=== PATIENT | female | born 1950 | race Caucasian/White ===

== ENCOUNTER → 2020-08-07 | Outpatient (CLI) | payer MEDICARE, OTHER ==
[~2020-08-07] MED LIST: ACID CONTROLLER20 MG PO; AIRDUO DIGIHAL1 EACH; AMLODIPINE BESY10 MG PO; CLORAZEPATE DI7.5 MG PO; HYDROCHLOROTH12.5 MG PO; LEVOTHYROXINE137 MC1 PO; LIPITOR TAB 1010 MG PO; LOPRESSOR 25 MG25 MG PO; METFORMIN HCL1000 M1 PO; SOLIQUA 100 UNIT3 ML SQ; TRAMADOL HCL50 MG PO; VITAMIN D3125 MC1 PO; VOLTAREN EC 7575 MG PO
== END ==
LOC: HEART 5 15:21
DX: I10 Essential (primary) hypertension (principal); R00.2 Palpitations

== ENCOUNTER → 2020-09-07 | Outpatient (CLI) | payer MEDICARE, OTHER | LOC: HEART 5 08:10 | DX: I47.2 Ventricular tachycardia (principal) | CPT/HCPCS: 78452; A9502; J2785 ==

== ENCOUNTER → 2020-10-13 | Outpatient (CLI) | payer MEDICARE, OTHER ==
[2020-10-13 15:37] LABS: HEMOGLOBIN 13.6 gm/dl (12.3-15.3); RED BLOOD COUNT 4.71 M/UL (4.00-5.10); WHITE BLOOD COUNT 6.7 K/UL (4.5-11.0)
== END ==
LOC: LAB 12:53
PROVIDERS: Internal Medicine Interventional Cardiology
DX: I10 Essential (primary) hypertension (principal); R07.9 Chest pain, unspecified; I20.9 Angina pectoris, unspecified; E11.9 Type 2 diabetes mellitus without complications; E78.5 Hyperlipidemia, unspecified
CPT/HCPCS: 36415; 80048; 85025; 85610; 85730

== ENCOUNTER → 2020-10-25 | Outpatient (CLI) | payer MEDICARE, OTHER | LOC: CATH 07:32 | DX: I25.118 Atherosclerotic heart disease of native coronary artery with other forms of angina pectoris (principal); M25.511 Pain in right shoulder; I10 Essential (primary) hypertension; E11.9 Type 2 diabetes mellitus without complications; E78.5 Hyperlipidemia, unspecified; Z20.822 Contact with and (suspected) exposure to COVID-19 | CPT/HCPCS: 93005; 93571; 99152; 99153; C1769; C1887; J0153; J1644; J2250; J2930; J3010; J7030; Q9967 ==

== ENCOUNTER → 2021-02-05 | Outpatient (CLI) | payer MEDICARE, OTHER | LOC: HEART 5 13:00 | DX: I25.119 Atherosclerotic heart disease of native coronary artery with unspecified angina pectoris (principal); R07.9 Chest pain, unspecified; I08.1 Rheumatic disorders of both mitral and tricuspid valves; I51.7 Cardiomegaly | CPT/HCPCS: 93306 ==